=== PATIENT | female | born 1980 | race Caucasian/White ===

== ENCOUNTER → 2016-06-26 | Outpatient (CLI) | payer BC ==
[~2016-06-26] MED LIST: LORA-655
== END | disposition home or self-care (01) ==
LOC: XYW 08:14
PROVIDERS: ATTEND Internal Medicine
DX: Z01.818 Encounter for other preprocedural examination (principal); R00.2 Palpitations; I34.2 Nonrheumatic mitral (valve) stenosis; I35.0 Nonrheumatic aortic (valve) stenosis
CPT/HCPCS: 93306

== ENCOUNTER → 2016-07-17 | Outpatient (CLI) | payer BC | END | disposition home or self-care (01) | LOC: LAB 09:45 | PROVIDERS: ATTEND Obstetrics & Gynecology | DX: N93.8 Other specified abnormal uterine and vaginal bleeding (principal) ==

== ENCOUNTER → 2017-01-22 | Outpatient (CLI) | payer BC | END | disposition home or self-care (01) | LOC: LAB 15:39 | PROVIDERS: ATTEND Obstetrics & Gynecology | DX: N91.2 Amenorrhea, unspecified (principal) | CPT/HCPCS: 36415; 84702 ==

== ENCOUNTER → 2017-03-10 | Outpatient (CLI) | payer BC | END | disposition home or self-care (01) | LOC: LAB 16:49 | PROVIDERS: ATTEND Obstetrics & Gynecology | DX: R97.1 Elevated cancer antigen 125 [CA 125] (principal) | CPT/HCPCS: 86300; 86301; 86304 ==

== ENCOUNTER → 2017-05-21 | Outpatient (CLI) | payer BC ==
[2017-05-21 08:39] LABS: Basophils # (auto) 0 uL; Basophils % (auto) 0.6 % (0.0-2.0); Eosinophils # (auto) 0.1 uL; Eosinophils % (auto) 1.9 % (0.0-7.0); Hematocrit 41.3 % (36.0-46.0); Lymphocytes # (auto) 2.9 uL; Lymphocytes % (auto) 36.9 % (10.0-50.0); Mean Corpuscular Hemoglobin 29.2 pg (28.0-32.0); Mean Corpuscular Hgb Conc. 33.8 g/dL (32.0-36.0); Mean Corpuscular Volume 86.5 fL (80.0-100.0); Mean Platelet Volume 7.8 fL (6.9-10.8); Monocytes # (auto) 0.6 uL; Monocytes % (auto) 7.6 % (0.0-12.0); Neutrophils # (auto) 4.1 uL; Nucleated Red Blood Cells % 0.1 %; Platelet Count (auto) 315 10^3/uL (140-450); Red Cell Distribution Width 12.7 % (11.8-14.3); White Blood Cell 7.7 10^3/uL (4.4-10.8)
[2017-05-21 09:24] LABS: Albumin 4.1 g/dL (3.4-5.0); BUN/Creatinine Ratio 15.9; Bilirubin, Total 0.3 mg/dL (0.2-1.0); Calcium 8.9 mg/dL (8.5-10.1); Potassium 4.2 mmol/L (3.5-5.1)
[2017-05-21 10:13] LABS: Urine Bilirubin Negative (Negative); Urine Blood Negative /uL (Negative); Urine Color Yellow (Yellow); Urine Glucose Normal (Normal); Urine Ketone Negative (Negative); Urine Nitrite Negative (Negative); Urine RBC 2 /hpf (0 - 4); Urine Squamous Epithelial Cell FEW /hpf (<5); Urine Urobilinogen Normal (Negative)
== END | disposition home or self-care (01) ==
LOC: LAB 08:17
PROVIDERS: ATTEND Internal Medicine
DX: D36.7 Benign neoplasm of other specified sites (principal); I10 Essential (primary) hypertension; E11.9 Type 2 diabetes mellitus without complications
CPT/HCPCS: 36415; 80053; 80061; 81001; 82088; 82306; 82384; 84439; 84443; 85025; 85652

== ENCOUNTER → 2018-03-08 | Outpatient (CLI) | payer BC | END | disposition home or self-care (01) | LOC: LAB 15:34 | PROVIDERS: ATTEND Obstetrics & Gynecology | DX: R97.8 Other abnormal tumor markers (principal); I10 Essential (primary) hypertension; E11.9 Type 2 diabetes mellitus without complications | CPT/HCPCS: 86300 ==

== ENCOUNTER → 2018-03-26 | Outpatient (CLI) | payer BC ==
[2018-03-26 07:33] LABS: Basophils # (auto) 0.1 uL; Basophils % (auto) 1.2 % (0.0-2.0); Eosinophils # (auto) 0.2 uL; Eosinophils % (auto) 1.8 % (0.0-7.0); Hematocrit 42.4 % (36.0-46.0); Hemoglobin 14.1 g/dL (12.2-16.2); Lymphocytes # (auto) 3.1 uL; Lymphocytes % (auto) 37.3 % (10.0-50.0); Mean Corpuscular Hemoglobin 28.8 pg (28.0-32.0); Mean Corpuscular Hgb Conc. 33.3 g/dL (32.0-36.0); Mean Corpuscular Volume 86.6 fL (80.0-100.0); Monocytes # (auto) 0.6 uL; Monocytes % (auto) 6.6 % (0.0-12.0); Neutrophils # (auto) 4.5 uL; Neutrophils % (auto) 53.1 % (37.0-80.0); Nucleated Red Blood Cells % 0.1 %; Platelet Count (auto) 314 10^3/uL (140-450); Red Blood Cells 4.89 10^6/uL (4.0-5.20); White Blood Cell 8.4 10^3/uL (4.4-10.8)
[2018-03-26 08:02] LABS: Urine Bacteria FEW /hpf (None Seen); Urine Blood Negative /uL (Negative); Urine Specific Gravity 1.022 (1.001-1.035); Urine WBC <1 /hpf (0 - 5)
[2018-03-26 08:56] LABS: Albumin 4.1 g/dL (3.4-5.0); Potassium 4.2 mmol/L (3.5-5.1)
[2018-03-26 09:02] LABS: BUN/Creatinine Ratio 17.4; Bilirubin, Total 0.5 mg/dL (0.2-1.0); Total Protein 8.5 g/dL (6.4-8.2)
== END | disposition home or self-care (01) ==
LOC: LAB 07:13
PROVIDERS: ATTEND Internal Medicine
DX: Z00.01 Encounter for general adult medical examination with abnormal findings (principal); F41.1 Generalized anxiety disorder
CPT/HCPCS: 36415; 80053; 80061; 81001; 82306; 84439; 84443; 85025; 85652

== ENCOUNTER 2018-06-26 17:35 | Emergency (ER) | payer BC ==
[~2018-06-26] VITALS: Ht 160 cm; Wt 72.6 kg
[2018-06-26 18:15] LABS: Basophils # (auto) 0.1 uL; Basophils % (auto) 0.8 % (0.0-2.0); Eosinophils # (auto) 0.2 uL; Eosinophils % (auto) 1.6 % (0.0-7.0); Hematocrit 39.5 % (36.0-46.0); Hemoglobin 13.5 g/dL (12.2-16.2); Lymphocytes # (auto) 4.2 uL; Lymphocytes % (auto) 40.2 % (10.0-50.0); Mean Corpuscular Hemoglobin 29.6 pg (28.0-32.0); Mean Corpuscular Hgb Conc. 34.2 g/dL (32.0-36.0); Mean Corpuscular Volume 86.4 fL (80.0-100.0); Monocytes # (auto) 0.7 uL; Monocytes % (auto) 6.9 % (0.0-12.0); Neutrophils # (auto) 5.3 uL; Neutrophils % (auto) 50.5 % (37.0-80.0); Nucleated Red Blood Cells % 0.1 %; Platelet Count (auto) 323 10^3/uL (140-450); Red Blood Cells 4.57 10^6/uL (4.0-5.20); Red Cell Distribution Width 13.1 % (11.8-14.3); White Blood Cell 10.5 10^3/uL (4.4-10.8)
[2018-06-26 18:31] LABS: Albumin 4.1 g/dL (3.4-5.0); Anion Gap 7 (5-15); Blood Urea Nitrogen 16 mg/dL (7-18); Calcium 8.4 mg/dL (8.5-10.1); Carbon Dioxide 25 mmol/L (21-32); Chloride 107 mmol/L (98-107); Glucose 92 mg/dL (74-106); Potassium 3.2 mmol/L (3.5-5.1); Sodium 139 mmol/L (136-145)
[2018-06-26 18:34] LABS: Alanine Aminotransferase 23 U/L (13-56); Alkaline Phosphatase 69 U/L (45-117); Aspartate Aminotransferase 18 U/L (15-37); BUN/Creatinine Ratio 16.8; Bilirubin, Total 0.2 mg/dL (0.2-1.0); GFR African American > 60 mL/min; GFR Non-African American > 60 mL/min; Total Protein 7.9 g/dL (6.4-8.2)
[2018-06-26] MEDS ORDERED: MORPHINE SULFATE 10 MG/ML INJ 1ML SDV IV ONE (19:30)
[2018-06-26] MEDS ORDERED: ONDANSETRON HCL 4 MG/2 ML VIAL IV ONE (19:30)
[2018-06-26] MEDS ORDERED: KETOROLAC TROMETH 30 MG/ML 1ML VIAL IV ONE (20:45)
[2018-06-26 21:17] VITALS: BP 120/73
== END 2018-06-26 21:28 | disposition home or self-care (01) ==
LOC: ER 17:37
DX: G43.909 Migraine, unspecified, not intractable, without status migrainosus (principal); E11.9 Type 2 diabetes mellitus without complications; I10 Essential (primary) hypertension
CPT/HCPCS: 36415; 70450; 80053; 85025; 96374; 96375; 99284; J1885; J2270; J2405

== ENCOUNTER 2019-02-23 16:24 | Inpatient (IN) | payer BC ==
[~2019-02-23] VITALS: Ht 160 cm; Wt 78.0 kg
[2019-02-23] MEDS ORDERED: SODIUM CHLORIDE 0.9% 1,000 ML IV ONE ×2 (17:03→19:00)
[2019-02-23 17:27] LABS: Urine Amorphous Crystal FEW /hpf (None Seen); Urine Bacteria MANY /hpf (None Seen); Urine Blood 3+ /uL (Negative); Urine Specific Gravity 1.004 (1.001-1.035); Urine WBC 6 /hpf (0 - 5)
[2019-02-23 17:29] LABS: Albumin 4.2 g/dL (3.4-5.0); BUN/Creatinine Ratio 11.9; Calcium 8.7 mg/dL (8.5-10.1); Magnesium 2.6 mg/dL (1.6-2.6); Potassium 4.2 mmol/L (3.5-5.1)
[2019-02-23 17:37] LABS: Basophils # (auto) 0.1 uL; Eosinophils # (auto) 0.1 uL; Eosinophils % (auto) 0.8 % (0.0-7.0); Hematocrit 43.1 % (36.0-46.0); Hemoglobin 14.6 g/dL (12.2-16.2); Lymphocytes # (auto) 3.4 uL; Lymphocytes % (auto) 24.7 % (10.0-50.0); Mean Corpuscular Hemoglobin 29.3 pg (28.0-32.0); Mean Corpuscular Hgb Conc. 33.9 g/dL (32.0-36.0); Mean Corpuscular Volume 86.5 fL (80.0-100.0); Monocytes # (auto) 1.1 uL; Monocytes % (auto) 7.8 % (0.0-12.0); Neutrophils % (auto) 65.7 % (37.0-80.0); Nucleated Red Blood Cells % 0.1 %; Platelet Count (auto) 234 10^3/uL (140-450); Red Blood Cells 4.98 10^6/uL (4.0-5.20); Red Cell Distribution Width 13.5 % (11.8-14.3); White Blood Cell 13.7 10^3/uL (4.4-10.8)
[2019-02-23 17:38] LABS: Bilirubin, Total 0.4 mg/dL (0.2-1.0); Total Protein 8.3 g/dL (6.4-8.2)
[2019-02-23] MEDS ORDERED: NALBUPHINE HCL 10 MG/1ml INJECTION IV ONE (17:45)
[2019-02-23] MEDS ORDERED: PROMETHAZINE HCL 25 MG/ML 1ML IV ONE (17:45)
[2019-02-23] MEDS ORDERED: cefTRIAXone 1GM/50ML D5W 50 ML IV ONE (18:15)
[2019-02-23 21:00] VITALS: BP 138/95
--- NOTE | 2019-02-23 21:00 | NUR ---
MS admit from ER DANIELLE PARMAR admitted to tele/MS. Patient oriented to DAMIAN DUKE, RN primary RN, unit, room, bed, and unit policies regarding patient care and visiting hours. Patient weighed by bedscale and all questions and concerns addressed, patient verbalized understanding. Note: Patient brought to room via wheelchair. Able to transfer indepedently. 20 gauge IV to right AC intact and patent. Flushed with 10ml NS. Patient is currently on RA with no SOB or distress noted. Reports 7/10 pain in BLE. Pain management options discussed with patient. Bedside commode provided d/t pain/weakness of lower extremities. Patient encouraged to call for assistance when needed. POC discussed with patient who verbalizes understanding. Will continue to monitor for chages PRN.
[2019-02-23] MEDS: MORPHINE SULF INJ 2 MG/ML SYRINGE 1ML IV PRN (21:31)
[2019-02-23 21:52] VITALS: BP 138/95
--- NOTE | 2019-02-23 22:30 | NUR ---
ROUNDS Patient is resting in bed with eyes closed. Reports a decrease in pain following the administration of Morphine but continues to be "pretty sore". Encouraged patient to call for pain medication when needed. Verbalizes understanding. Will continue to monitor for changes PRN.
--- NOTE | 2019-02-24 | NUR ---
ROUNDS Patient resting ion bed with eyes closed. Respirations are even and non-labored. No distress noted.
--- NOTE | 2019-02-24 02:00 | NUR ---
ROUNDS Patient resting in bed on left side with eyes closed. Respirations even and on labored. No distress noted.
[2019-02-24] MEDS: MORPHINE SULF INJ 2 MG/ML SYRINGE 1ML IV PRN ×3 (03:02→20:39)
--- NOTE | 2019-02-24 03:02 | NUR ---
Patient medicated for 7/10 pain in BLE, specifically the lateral portion of bilateral thighs; described as a burning pain.
--- NOTE | 2019-02-24 03:03 | NUR ---
ELIMINATION Bedside commode emptied. Urine output is cloudy and brown in color with normal odor.
[2019-02-24 05:47] VITALS: BP 135/78
[2019-02-24 06:02] LABS: Basophils # (auto) 0.1 uL; Basophils % (auto) 0.5 % (0.0-2.0); Eosinophils # (auto) 0.2 uL; Eosinophils % (auto) 2.2 % (0.0-7.0); Hematocrit 39.3 % (36.0-46.0); Hemoglobin 13.2 g/dL (12.2-16.2); Lymphocytes # (auto) 2.6 uL; Lymphocytes % (auto) 27.5 % (10.0-50.0); Mean Corpuscular Hemoglobin 29.3 pg (28.0-32.0); Mean Corpuscular Hgb Conc. 33.7 g/dL (32.0-36.0); Monocytes % (auto) 10.1 % (0.0-12.0); Neutrophils # (auto) 5.7 uL; Neutrophils % (auto) 59.7 % (37.0-80.0); Nucleated Red Blood Cells % 0.1 %; Platelet Count (auto) 207 10^3/uL (140-450); Red Blood Cells 4.51 10^6/uL (4.0-5.20); Red Cell Distribution Width 13.2 % (11.8-14.3); White Blood Cell 9.5 10^3/uL (4.4-10.8)
[2019-02-24 06:22] LABS: Albumin 3.5 g/dL (3.4-5.0); Calcium 8.4 mg/dL (8.5-10.1); Magnesium 2.5 mg/dL (1.6-2.6); Potassium 4.2 mmol/L (3.5-5.1)
[2019-02-24 06:30] LABS: BUN/Creatinine Ratio 10.3; Bilirubin, Total 0.4 mg/dL (0.2-1.0); Phosphorus 3.3 mg/dL (2.5-4.90); Total Protein 7.1 g/dL (6.4-8.2)
--- NOTE | 2019-02-24 06:40 | NUR ---
Patient reports pain in Bilateral thighs. Muscle is firm and warm. Patient states that morphine is not able to decrease the pain much and declines pain medication a this time. Patient encouraged to call for any other needs.
--- NOTE | 2019-02-24 06:58 | NUR ---
Care endorsed to Day shift nurse. No distress noted at this time.
--- NOTE | 2019-02-24 07:20 | NUR ---
Opening Shift Note Assumed care of patient, awake and alert. No S/S of distress/SOB or pain. Instructed on POC and to call for assist PRN, will continue to monitor for changes Q1hr and PRN.
[2019-02-24 07:30] VITALS: BP 154/93
[2019-02-24 08:40] VITALS: BP 154/93
[2019-02-24] MEDS: cefTRIAXone 1GM/50ML D5W 50 ML IV SCH (09:08)
[2019-02-24] MEDS: FAMOTIDINE 20 MG TAB PO SCH (09:08)
[2019-02-24] MEDS ORDERED: FOLIC ACID 1 MG, MULTIPLE VITAMIN 10 ML, MAGNESIUM SULF SDV 50% 8 MEQ, THIAMINE INJ 100... INJ SCH ×5 (12:00)
[2019-02-24] MEDS: SODIUM BICARBONATE 50ML VIAL 50 ML in SOD CHL 0.45% 1,000 ML IV SCH ×3 (12:12→23:40)
--- NOTE | 2019-02-24 12:58 | NUR ---
Paged doctor Kathi, awaiting call back.
[2019-02-24 13:00] VITALS: BP 158/92
--- NOTE | 2019-02-24 13:44 | NUR ---
Spoke with Doctor Armenta. New orders received, see EMR for orders.
[2019-02-24] MEDS ORDERED: ONDANSETRON HCL 4 MG/2 ML VIAL IV PRN (13:45)
[2019-02-24 16:22] VITALS: BP 156/90
[2019-02-24] MEDS: traMADol HCL 50 MG TAB PO PRN (18:07)
--- NOTE | 2019-02-24 19:25 | NUR ---
Opening Shift Note Assumed care of patient, awake and alert. No S/S of distress/SOB. The patient c/o bilateral leg pain that is exacerbated with movement. Instructed on POC and to call for assist PRN, will continue to monitor for changes Q1hr and PRN.
[2019-02-24 21:00] VITALS: BP 158/89
[2019-02-25] MEDS: SODIUM BICARBONATE 50ML VIAL 50 ML in SOD CHL 0.45% 1,000 ML IV SCH ×5 (03:14→20:08)
--- NOTE | 2019-02-25 04:00 | NUR ---
PAIN ASSESSMENT The patient states that she is having a 7/10 headache which she describes as throbbing. The patient requested pain medication. Will treat with PRN pain medication.
[2019-02-25] MEDS: traMADol HCL 50 MG TAB PO PRN ×2 (04:05→09:57)
[2019-02-25 04:50] VITALS: BP 140/90
[2019-02-25 05:48] LABS: Calcium 8.1 mg/dL (8.5-10.1); Potassium 3.5 mmol/L (3.5-5.1)
[2019-02-25 05:51] LABS: Albumin 3.4 g/dL (3.4-5.0); BUN/Creatinine Ratio 8.9
[2019-02-25 06:07] LABS: Bilirubin, Total 0.4 mg/dL (0.2-1.0); Total Protein 6.8 g/dL (6.4-8.2)
--- NOTE | 2019-02-25 07:25 | NUR ---
Opening Shift Note Assumed care of patient, awake and alert x4. No S/S of distress/SOB, c/o of headache pain 10/15, will medicate with pain meds per MD order. Respirations are even and unlabored on RA. Updated on POC and instructed to call for assistance as needed, patient verbalized understanding. Bed locked in lowest position, side rails up x2, call light within reach. Will continue to monitor for changes Q1hr and PRN.
[2019-02-25 09:00] VITALS: BP 141/92
--- NOTE | 2019-02-25 09:06 | NUR ---
Patient c/o of a headache, requesting Motrin or Tylenol. Paged finance and administration manager hospitalist for orders.
[2019-02-25] MEDS: FAMOTIDINE 20 MG TAB PO SCH (09:27)
[2019-02-25] MEDS: cefTRIAXone 1GM/50ML D5W 50 ML IV SCH (09:27)
[2019-02-25] MEDS ORDERED: SODIUM BICARBONATE 50ML VIAL 50 ML in SOD CHL 0.45% 1,000 ML IV ONE ×2 (10:00→10:30)
[2019-02-25] MEDS ORDERED: KETOROLAC TROMETH 30 MG/ML 1ML VIAL IV ONE (10:00)
[2019-02-25 13:00] VITALS: BP 147/89
[2019-02-25 17:00] VITALS: BP 133/81
--- NOTE | 2019-02-25 18:45 | NUR ---
Care endorsed to Day shift nurse. No distress noted at this time.
--- NOTE | 2019-02-25 19:25 | NUR ---
Opening Shift Note Assumed care of patient, awake and alert. No S/S of distress/SOB. The patient c/o mild bilateral leg pain but does not request any pain medication. Patient has been educated about signs/symptoms to report immediately. Instructed on POC and to call for assist PRN, will continue to monitor for changes Q1hr and PRN.
[2019-02-25 21:45] VITALS: BP 150/91
[2019-02-26] MEDS: SODIUM BICARBONATE 50ML VIAL 50 ML in SOD CHL 0.45% 1,000 ML IV SCH ×6 (02:08→20:04)
[2019-02-26 05:14] VITALS: BP 136/91
[2019-02-26 06:28] LABS: Chloride 105 mmol/L (98-107); Potassium 3.7 mmol/L (3.5-5.1); Sodium 138 mmol/L (136-145)
[2019-02-26 06:29] LABS: Alkaline Phosphatase 57 U/L (45-117); Anion Gap 6 (5-15); Aspartate Aminotransferase 1893 U/L (15-37); BUN/Creatinine Ratio 12.2; Blood Urea Nitrogen 10 mg/dL (7-18); Carbon Dioxide 27 mmol/L (21-32); GFR African American 99 mL/min; GFR Non-African American 82 mL/min; Glucose 89 mg/dL (74-106)
[2019-02-26 06:30] LABS: Alanine Aminotransferase 762 U/L (13-56); Albumin 3.1 g/dL (3.4-5.0); Bilirubin, Total < 0.1 mg/dL (0.2-1.0); Calcium 8.4 mg/dL (8.5-10.1); Total Protein 6.6 g/dL (6.4-8.2)
--- NOTE | 2019-02-26 07:25 | NUR ---
CLOSING SHIFT NOTE Care has been endorsed to day shift RN.
--- NOTE | 2019-02-26 08:00 | NUR ---
PT REPORTS 7/10 PAIN IN ABDOMEN. PRN PAIN MEDICATION GIVEN. PT PULLED OUT IV, ATTEMPTED NEW IV USING STERILE TECHNIQUE ON LAC UNSUCCESSFUL. ASKED CHARGE FOR IV INSERTION. NEW IV PLACED BY YINA DUNHAM 22 G. Addendum: 02/26/19 at 1044 by NITIN ZEPEDA RN WRONG PATIENT
[2019-02-26 09:00] VITALS: BP 137/77
[2019-02-26] MEDS: cefTRIAXone 1GM/50ML D5W 50 ML IV SCH (09:47)
[2019-02-26] MEDS: FAMOTIDINE 20 MG TAB PO SCH (09:48)
--- NOTE | 2019-02-26 10:45 | NUR ---
DR HATCH SAW PATIENT. REPORTS TO CONTINUE FLUIDS, GI CONSULT AND GALL BLADDER US. [facility] CALLED. THEY REQUEST PT BE NPO UNTIL 1700, PT AWARE.
--- NOTE | 2019-02-26 10:53 | NUR ---
PER DR. THOMAS, NO CONSULT NEEDED TO BE CALLED FOR 209. PLACED BY AT 1036. DR THOMAS SAW PAT.
[2019-02-26 13:00] VITALS: BP 139/88
[2019-02-26 16:55] VITALS: BP 142/78
[2019-02-26 22:00] VITALS: BP 133/81
[2019-02-27] MEDS: SODIUM BICARBONATE 50ML VIAL 50 ML in SOD CHL 0.45% 1,000 ML IV SCH ×6 (00:17→21:00)
[2019-02-27 05:08] LABS: Basophils # (auto) 0.1 uL; Eosinophils # (auto) 0.3 uL; Eosinophils % (auto) 3.5 % (0.0-7.0); Hematocrit 36.6 % (36.0-46.0); Hemoglobin 12.4 g/dL (12.2-16.2); Lymphocytes # (auto) 2.4 uL; Lymphocytes % (auto) 26.4 % (10.0-50.0); Mean Corpuscular Hemoglobin 29.3 pg (28.0-32.0); Mean Corpuscular Hgb Conc. 33.9 g/dL (32.0-36.0); Mean Corpuscular Volume 86.5 fL (80.0-100.0); Monocytes # (auto) 0.5 uL; Monocytes % (auto) 5.9 % (0.0-12.0); Neutrophils # (auto) 5.7 uL; Neutrophils % (auto) 63.2 % (37.0-80.0); Platelet Count (auto) 262 10^3/uL (140-450); Red Blood Cells 4.23 10^6/uL (4.0-5.20)
[2019-02-27 05:18] LABS: Potassium 3.7 mmol/L (3.5-5.1)
[2019-02-27 05:22] LABS: Albumin 3.1 g/dL (3.4-5.0); Calcium 8.3 mg/dL (8.5-10.1)
[2019-02-27 05:31] LABS: Bilirubin, Total 0.4 mg/dL (0.2-1.0); Total Protein 6.4 g/dL (6.4-8.2)
[2019-02-27 05:47] VITALS: BP 127/79
[2019-02-27 06:50] LABS: BUN/Creatinine Ratio 14.1
--- NOTE | 2019-02-27 07:49 | NUR ---
PT REPORTS SHE WANTS TO GO HOME SOON. PT UPSET AND CRYING. LICENSED ARCHITECT TAKING VITALS, HR 155. PT REPORTS NO SOB OR CHEST PAIN, SHE REPORTS SHE IS ,"JUST FRUSTRATED." STAT ECG DONE. ECG SHOW SINUS TACHYCARDIA 105 BPM. BP 129/105. DR HATCH NOTIFIED. NO NEW ORDERS.
--- NOTE | 2019-02-27 08:45 | NUR ---
DR HATCH SAW PATIENT AND DISCUSSED POC. DR HATCH NOTIFIED PATIENT ON HER HEALTH STATUS. REPORTS POSSIBLE DC TOMORROW.
[2019-02-27 08:46] VITALS: BP 129/105
[2019-02-27 09:00] VITALS: BP 129/105
[2019-02-27] MEDS: FAMOTIDINE 20 MG TAB PO SCH (10:01)
--- NOTE | 2019-02-27 12:15 | NUR ---
Nutrition Assessment Notes please see attached link for complete assessment Est. Needs BW [id number] kcal (23-25 kcal/kgBW), 73-80 gms pro (1.0-1.1 gms/kgBW). Will continue to monitor pertinent labs and reassess nutrient need prn Addendum: 02/27/19 at [address] Amended: Links added.
[2019-02-27 12:30] VITALS: BP 135/90
[2019-02-27 16:55] VITALS: BP 132/66
[2019-02-27 22:20] VITALS: BP 139/84
[2019-02-28] MEDS: SODIUM BICARBONATE 50ML VIAL 50 ML in SOD CHL 0.45% 1,000 ML IV SCH ×5 (02:14→20:29)
[2019-02-28 05:02] LABS: Basophils # (auto) 0 uL; Basophils % (auto) 0.2 % (0.0-2.0); Eosinophils # (auto) 0.3 uL; Eosinophils % (auto) 3.9 % (0.0-7.0); Hematocrit 36.8 % (36.0-46.0); Hemoglobin 12.6 g/dL (12.2-16.2); Lymphocytes # (auto) 2.3 uL; Lymphocytes % (auto) 27.4 % (10.0-50.0); Mean Corpuscular Hemoglobin 29.9 pg (28.0-32.0); Mean Corpuscular Hgb Conc. 34.3 g/dL (32.0-36.0); Mean Corpuscular Volume 87.1 fL (80.0-100.0); Monocytes # (auto) 0.5 uL; Neutrophils # (auto) 5.3 uL; Neutrophils % (auto) 62.5 % (37.0-80.0); Nucleated Red Blood Cells % 0.1 %; Platelet Count (auto) 270 10^3/uL (140-450); Red Blood Cells 4.22 10^6/uL (4.0-5.20); White Blood Cell 8.5 10^3/uL (4.4-10.8)
[2019-02-28 05:27] LABS: Calcium 8.5 mg/dL (8.5-10.1); Potassium 3.6 mmol/L (3.5-5.1)
[2019-02-28 05:55] LABS: BUN/Creatinine Ratio 11.3; Bilirubin, Total 0.3 mg/dL (0.2-1.0); Total Protein 6.4 g/dL (6.4-8.2)
[2019-02-28 06:00] VITALS: BP 134/75
[2019-02-28 09:00] VITALS: BP 148/78
[2019-02-28] MEDS: FAMOTIDINE 20 MG TAB PO SCH (09:59)
[2019-02-28 13:00] VITALS: BP 132/69
[2019-02-28 16:55] VITALS: BP 135/86
--- NOTE | 2019-02-28 19:00 | NUR ---
Opening Shift Note Assumed care of patient, awake and alert. Family on bedside. No S/S of distress/SOB or pain. Instructed on POC and to call for assist PRN, will continue to monitor for changes Q1hr and PRN.
[2019-02-28 21:00] VITALS: BP 145/82
[2019-03-01] MEDS: SODIUM BICARBONATE 50ML VIAL 50 ML in SOD CHL 0.45% 1,000 ML IV SCH ×3 (01:43→06:42)
[2019-03-01 04:30] VITALS: BP 122/71
[2019-03-01 06:09] LABS: Albumin 2.9 g/dL (3.4-5.0); BUN/Creatinine Ratio 12.5; Calcium 8.3 mg/dL (8.5-10.1); Potassium 3.5 mmol/L (3.5-5.1)
[2019-03-01 06:37] LABS: Bilirubin, Total 0.2 mg/dL (0.2-1.0); Total Protein 6.2 g/dL (6.4-8.2)
[2019-03-01 09:16] VITALS: BP 126/84
[2019-03-01] MEDS: FAMOTIDINE 20 MG TAB PO SCH (09:29)
--- NOTE | 2019-03-01 11:37 | NUR ---
DISCHARGE INSTRUCTIONS PROVIDED, VERBALIZED UNDERSTANDING. IV ACCESS REMOVED, TOLERATED WELL. WAITING FOR CO WORKER TO TAKE HER HOME.
--- NOTE | 2019-03-01 12:45 | NUR ---
discharge from hospital with all belonging accounted for. jay Thornton took patient off unit.
== END 2019-03-01 12:45 | disposition home or self-care (01) | DRG 558 ==
LOC: ER 16:31 → OVERFLOW 16:32 → CENTRAL 21:06
PROVIDERS: ADMIT Nurse Practitioner Acute Care; ATTEND Internal Medicine
DX: M62.82 Rhabdomyolysis (principal); N39.0 Urinary tract infection, site not specified; R65.10 Systemic inflammatory response syndrome (SIRS) of non-infectious origin without acute organ dysfunction; M60.862 Other myositis, left lower leg; M60.861 Other myositis, right lower leg; I10 Essential (primary) hypertension; D72.829 Elevated white blood cell count, unspecified; R79.89 Other specified abnormal findings of blood chemistry
CPT/HCPCS: 36415; 71046; 76705; 80053; 81001; 82550; 83735; 84100; 84702; 85025; 93005; G0378; J0696; J1885; J2405

== ENCOUNTER → 2019-03-03 | Outpatient (CLI) | payer BC ==
[2019-03-03 09:04] LABS: Albumin 3.6 g/dL (3.4-5.0); Calcium 8.8 mg/dL (8.5-10.1); Potassium 3.3 mmol/L (3.5-5.1)
[2019-03-03 09:18] LABS: BUN/Creatinine Ratio 21.2; Bilirubin, Total 0.2 mg/dL (0.2-1.0); Total Protein 7.3 g/dL (6.4-8.2)
== END | disposition home or self-care (01) ==
LOC: LAB 07:56
PROVIDERS: ATTEND Pathology Anatomic Pathology & Clinical Pathology
DX: M62.82 Rhabdomyolysis (principal)
CPT/HCPCS: 36415; 80053; 82550

== ENCOUNTER → 2019-03-09 | Outpatient (CLI) | payer BC ==
[2019-03-09 12:25] LABS: Albumin 3.8 g/dL (3.4-5.0); Calcium 9.2 mg/dL (8.5-10.1); Potassium 4.3 mmol/L (3.5-5.1)
[2019-03-09 12:30] LABS: BUN/Creatinine Ratio 16.7; Bilirubin, Total 0.3 mg/dL (0.2-1.0); Total Protein 7.7 g/dL (6.4-8.2)
== END | disposition home or self-care (01) ==
LOC: LAB 10:49
PROVIDERS: ATTEND Internal Medicine
DX: M62.82 Rhabdomyolysis (principal)
CPT/HCPCS: 36415; 80053; 82550

== ENCOUNTER → 2019-04-04 | Outpatient (CLI) | payer BC ==
[2019-04-04 09:40] LABS: Cholesterol 192 mg/dL (< 200); Creatine Kinase IFCC 262 U/L (26-192); HDL Cholesterol 43 mg/dL (40-59); LDL Cholesterol 132 mg/dL (< 100); Triglycerides 215 mg/dL (< 150)
== END | disposition home or self-care (01) ==
LOC: LAB 07:12
PROVIDERS: ATTEND Internal Medicine
DX: E78.1 Pure hyperglyceridemia (principal)
CPT/HCPCS: 36415; 80061; 82550; 84443

== ENCOUNTER → 2019-07-29 | Emergency (ER) | payer BC ==
[~2019-07-29] VITALS: Ht 160 cm; Wt 72.6 kg
[~2019-07-29] MED LIST changes: -LORA-655; +MORPHINE SULF INJ 2 MG/ML SYRINGE 1ML IV ONE; +ONDANSETRON HCL 4 MG/2 ML VIAL IV ONE; +POTASSIUM CHL 20 Meq TABLET PO ONE; +POTASSIUM CHL 20MEQ/100ML 100 ML IV ONE; +cloNIDine HCL 0.1 MG TAB PO ONE
[2019-07-29 12:53] LABS: Urine Bacteria NONE SEEN /hpf (None Seen); Urine Blood Negative /uL (Negative); Urine Specific Gravity 1.004 (1.001-1.035); Urine WBC 1 /hpf (0 - 5)
[2019-07-29 13:35] LABS: Albumin 4.4 g/dL (3.4-5.0); Calcium 9.4 mg/dL (8.5-10.1); Magnesium 2.6 mg/dL (1.6-2.6)
[2019-07-29 13:38] LABS: BUN/Creatinine Ratio 13.4; Bilirubin, Total 0.4 mg/dL (0.2-1.0)
[2019-07-29 14:00] LABS: Basophils # (auto) 0.1 uL; Basophils % (auto) 0.5 % (0.0-2.0); Eosinophils # (auto) 0 uL; Eosinophils % (auto) 0.4 % (0.0-7.0); Hematocrit 41.4 % (36.0-46.0); Hemoglobin 13.9 g/dL (12.2-16.2); Lymphocytes # (auto) 2.4 uL; Lymphocytes % (auto) 19.7 % (10.0-50.0); Mean Corpuscular Hemoglobin 28.6 pg (28.0-32.0); Mean Corpuscular Hgb Conc. 33.5 g/dL (32.0-36.0); Mean Corpuscular Volume 85.5 fL (80.0-100.0); Monocytes # (auto) 0.7 uL; Monocytes % (auto) 5.9 % (0.0-12.0); Neutrophils # (auto) 9.1 uL; Neutrophils % (auto) 73.5 % (37.0-80.0); Platelet Count (auto) 353 10^3/uL (140-450); Red Blood Cells 4.84 10^6/uL (4.0-5.20); Red Cell Distribution Width 13.1 % (11.8-14.3); White Blood Cell 12.3 10^3/uL (4.4-10.8)
[2019-07-29 15:23] VITALS: BP 141/95
== END | disposition home or self-care (01) ==
LOC: ER 11:58
DX: G43.909 Migraine, unspecified, not intractable, without status migrainosus (principal); R11.2 Nausea with vomiting, unspecified; E11.9 Type 2 diabetes mellitus without complications; I10 Essential (primary) hypertension
CPT/HCPCS: 36415; 70450; 80053; 81001; 83735; 84702; 85025; 93005; 96374; 96375; 99285; J2270; J2405

== ENCOUNTER → 2019-09-23 | Outpatient (CLI) | payer BC ==
[2019-09-23 12:22] LABS: Calcium 9.1 mg/dL (8.5-10.1); Potassium 3.6 mmol/L (3.5-5.1)
[2019-09-23 12:27] LABS: BUN/Creatinine Ratio 14.1
== END | disposition home or self-care (01) ==
LOC: LAB 11:26
PROVIDERS: ATTEND Internal Medicine
DX: I10 Essential (primary) hypertension (principal); E55.9 Vitamin D deficiency, unspecified; M62.82 Rhabdomyolysis
CPT/HCPCS: 36415; 80048; 82306; 82550

== ENCOUNTER → 2020-03-21 | Outpatient (CLI) | payer BC ==
[2020-03-21 15:12] LABS: Basophils # (auto) 0.1 10 ^3/uL (0-0.2); Basophils % (auto) 0.8 % (0.0-2.0); Eosinophils # (auto) 0.1 10 ^3/uL (0-0.8); Eosinophils % (auto) 1.6 % (0.0-7.0); Hematocrit 38.4 % (36.0-46.0); Hemoglobin 12.9 g/dL (12.2-16.2); Lymphocytes # (auto) 2.6 10 ^3/uL (0.4-5.4); Lymphocytes % (auto) 37.2 % (10.0-50.0); Mean Corpuscular Hgb Conc. 33.5 g/dL (32.0-36.0); Mean Corpuscular Volume 86.4 fL (80.0-100.0); Monocytes # (auto) 0.5 10 ^3/uL (0-1.3); Monocytes % (auto) 6.4 % (0.0-12.0); Neutrophils # (auto) 3.8 10 ^3/uL (1.6-8.6); Platelet Count (auto) 258 10^3/uL (140-450); Red Blood Cells 4.44 10^6/uL (4.0-5.20); Red Cell Distribution Width 13.3 % (11.8-14.3); White Blood Cell 7.1 10^3/uL (4.4-10.8)
[2020-03-21 15:36] LABS: Follicle Stimulating Hormone 5.19 IU/L (SEE BELOW)
== END | disposition home or self-care (01) ==
LOC: LAB 13:56
PROVIDERS: ATTEND Obstetrics & Gynecology
DX: N93.9 Abnormal uterine and vaginal bleeding, unspecified (principal)
CPT/HCPCS: 36415; 82670; 83001; 83002; 84403; 84443; 85025

== ENCOUNTER → 2021-02-15 | Outpatient (CLI) | payer BC | END | disposition home or self-care (01) | LOC: LAB 15:15 | PROVIDERS: ATTEND Obstetrics & Gynecology | DX: N85.8 Other specified noninflammatory disorders of uterus (principal) ==

== ENCOUNTER → 2022-03-10 | Outpatient (CLI) | payer BC ==
[2022-03-10 07:09] LABS: Basophils # (auto) 0 10 ^3/uL (0-0.2); Basophils % (auto) 0.5 % (0.0-2.0); Eosinophils # (auto) 0.1 10 ^3/uL (0-0.8); Hematocrit 39.4 % (36.0-46.0); Hemoglobin 13.3 g/dL (12.2-16.2); Lymphocytes # (auto) 2.3 10 ^3/uL (0.4-5.4); Lymphocytes % (auto) 34.8 % (10.0-50.0); Mean Corpuscular Hemoglobin 29.1 pg (28.0-32.0); Mean Corpuscular Hgb Conc. 33.8 g/dL (32.0-36.0); Monocytes # (auto) 0.5 10 ^3/uL (0-1.3); Neutrophils # (auto) 3.7 10 ^3/uL (1.6-8.6); Neutrophils % (auto) 54.7 % (37.0-80.0); Nucleated Red Blood Cells % 0.1 %; Red Blood Cells 4.59 10^6/uL (4.0-5.20); Red Cell Distribution Width 12.7 % (11.8-14.3); White Blood Cell 6.7 10^3/uL (4.4-10.8)
[2022-03-10 07:13] LABS: Urine Bacteria FEW /hpf (None Seen); Urine Blood Negative /uL (Negative); Urine Specific Gravity 1.015 (1.001-1.035); Urine WBC 1 /hpf (0 - 5)
[2022-03-10 07:37] LABS: Albumin 3.9 g/dL (3.4-5.0); Potassium 4.2 mmol/L (3.5-5.1)
[2022-03-10 07:43] LABS: BUN/Creatinine Ratio 17.8; Bilirubin, Total 0.4 mg/dL (0.2-1.0); Total Protein 7.4 g/dL (6.4-8.2)
== END | disposition home or self-care (01) ==
LOC: LAB 06:37
PROVIDERS: ATTEND Internal Medicine
DX: I10 Essential (primary) hypertension (principal); E55.9 Vitamin D deficiency, unspecified
CPT/HCPCS: 36415; 80053; 80061; 81001; 82306; 84439; 84443; 85025; 85652

== ENCOUNTER → 2023-02-25 | Outpatient (CLI) | payer BC ==
[~2023-02-25] MED LIST changes: +AZIT1POW PO; +METH4PAK PO; -MORPHINE SULF INJ 2 MG/ML SYRINGE 1ML IV ONE; -ONDANSETRON HCL 4 MG/2 ML VIAL IV ONE; -POTASSIUM CHL 20 Meq TABLET PO ONE; -POTASSIUM CHL 20MEQ/100ML 100 ML IV ONE; -cloNIDine HCL 0.1 MG TAB PO ONE
[2023-02-25 08:07] LABS: Urine Bacteria NONE SEEN /hpf (None Seen); Urine Blood Negative /uL (Negative); Urine Clarity Clear (Clear); Urine Color Yellow (Yellow); Urine Mucus FEW (None Seen); Urine Protein, UAD TRACE (Negative); Urine Specific Gravity 1.026 (1.001-1.035); Urine Urobilinogen Normal (Negative); Urine WBC <1 /hpf (0 - 5); Urine pH 6.5 (5.0-8.0)
[2023-02-25 08:08] LABS: Basophils # (auto) 0.1 10 ^3/uL (0-0.2); Basophils % (auto) 1.2 % (0.0-2.0); Eosinophils # (auto) 0.2 10 ^3/uL (0-0.8); Eosinophils % (auto) 2.4 % (0.0-7.0); Hematocrit 39.1 % (36.0-46.0); Hemoglobin 13.5 g/dL (12.2-16.2); Lymphocytes # (auto) 2.4 10 ^3/uL (0.4-5.4); Lymphocytes % (auto) 35.8 % (10.0-50.0); Mean Corpuscular Hemoglobin 29.8 pg (28.0-32.0); Mean Corpuscular Hgb Conc. 34.4 g/dL (32.0-36.0); Mean Corpuscular Volume 86.6 fL (80.0-100.0); Monocytes # (auto) 0.5 10 ^3/uL (0-1.3); Monocytes % (auto) 7.4 % (0.0-12.0); Neutrophils # (auto) 3.6 10 ^3/uL (1.6-8.6); Neutrophils % (auto) 53.2 % (37.0-80.0); Red Blood Cells 4.52 10^6/uL (4.0-5.20); Red Cell Distribution Width 12.9 % (11.8-14.3); White Blood Cell 6.7 10^3/uL (4.4-10.8)
[2023-02-25 08:32] LABS: Alanine Aminotransferase 18 U/L (7-40); Albumin 4.6 g/dL (3.2-4.8); Alkaline Phosphatase 60 U/L (46-116); Aspartate Aminotransferase 17 U/L (13-40); BUN/Creatinine Ratio 12.3 (10.0-20.0); Blood Urea Nitrogen 13 mg/dL (9-23); Calcium 9.3 mg/dL (8.5-10.1); Carbon Dioxide 26 mmol/L (20-30); Cholesterol 187 mg/dL (< 200); Glucose 89 mg/dL (74-106); LDL Cholesterol 112 mg/dL (< 100); Triglycerides 252 mg/dL (< 150)
[2023-02-25 08:33] LABS: Bilirubin, Total 0.5 mg/dL (0.2-1.0); HDL Cholesterol 46 mg/dL (40-59); Total Protein 7.6 g/dL (5.7-8.2)
[2023-02-25 09:04] LABS: Anion Gap 7 (5-15); Chloride 106 mmol/L (98-107); Potassium 4.3 mmol/L (3.5-5.1); Sodium 139 mmol/L (136-145)
[2023-02-25 09:33] LABS: Erythrocyte Sedimentation Rate 13 mm/hr (0-20)
== END | disposition home or self-care (01) ==
LOC: LAB 07:48
PROVIDERS: ATTEND Internal Medicine
DX: I10 Essential (primary) hypertension (principal)
CPT/HCPCS: 36415; 80053; 80061; 81001; 84439; 84443; 85025; 85652

== ENCOUNTER → 2024-03-07 | Outpatient (CLI) | payer BC ==
[2024-03-07 10:03] LABS: Basophils # (auto) 0 10 ^3/uL (0-0.2); Basophils % (auto) 0.5 % (0.0-2.0); Eosinophils # (auto) 0.2 10 ^3/uL (0-0.8); Eosinophils % (auto) 2.1 % (0.0-7.0); Hematocrit 39.7 % (36.0-46.0); Hemoglobin 13.7 g/dL (12.2-16.2); Lymphocytes # (auto) 2.7 10 ^3/uL (0.4-5.4); Lymphocytes % (auto) 36.7 % (10.0-50.0); Mean Corpuscular Hemoglobin 30.2 pg (28.0-32.0); Mean Corpuscular Hgb Conc. 34.5 g/dL (32.0-36.0); Mean Corpuscular Volume 87.5 fL (80.0-100.0); Monocytes # (auto) 0.5 10 ^3/uL (0-1.3); Monocytes % (auto) 7.1 % (0.0-12.0); Neutrophils % (auto) 53.6 % (37.0-80.0); Platelet Count (auto) 295 10^3/uL (140-450); Red Blood Cells 4.54 10^6/uL (4.0-5.20); Red Cell Distribution Width 13.3 % (11.8-14.3); White Blood Cell 7.5 10^3/uL (4.4-10.8)
[2024-03-07 10:06] LABS: Urine Bacteria FEW /hpf (None Seen); Urine Blood Negative /uL (Negative); Urine Clarity Clear (Clear); Urine Color Light-Yellow (Yellow); Urine Protein, UAD Negative (Negative); Urine Specific Gravity 1.009 (1.001-1.035); Urine Urobilinogen Normal (Negative); Urine WBC <1 /hpf (0 - 5)
[2024-03-07 10:19] LABS: Erythrocyte Sedimentation Rate 12 mm/hr (0-20)
[2024-03-07 10:27] LABS: Alanine Aminotransferase 17 U/L (7-40); Albumin 4.6 g/dL (3.2-4.8); Alkaline Phosphatase 69 U/L (46-116); Anion Gap 7 (5-15); Aspartate Aminotransferase 15 U/L (13-40); BUN/Creatinine Ratio 14.3 (10.0-20.0); Blood Urea Nitrogen 12 mg/dL (9-23); Calcium 9.8 mg/dL (8.7-10.4); Carbon Dioxide 26 mmol/L (20-31); Chloride 105 mmol/L (98-107); Glucose 77 mg/dL (74-106); LDL Cholesterol 124 mg/dL (< 100); Potassium 4.2 mmol/L (3.5-5.1); Sodium 138 mmol/L (136-145); Triglycerides 192 mg/dL (< 150)
[2024-03-07 10:28] LABS: Bilirubin, Total 0.3 mg/dL (0.2-1.0); Cholesterol 188 mg/dL (< 200); HDL Cholesterol 48 mg/dL (40-59); Total Protein 7.4 g/dL (5.7-8.2)
[2024-03-07 11:36] LABS: Uric Acid 4.4 mg/dL (3.1-7.8)
== END | disposition home or self-care (01) ==
LOC: LAB 09:33
PROVIDERS: ATTEND Internal Medicine
DX: I10 Essential (primary) hypertension (principal)
CPT/HCPCS: 36415; 80053; 80061; 81001; 84439; 84443; 84550; 85025; 85652

== ENCOUNTER → 2024-08-11 | Outpatient (CLI) | payer BC ==
[2024-08-11 08:22] LABS: Basophils # (auto) 0.1 10 ^3/uL (0-0.2); Basophils % (auto) 1.2 % (0.0-2.0); Eosinophils # (auto) 0.1 10 ^3/uL (0-0.8); Eosinophils % (auto) 1.5 % (0.0-7.0); Hematocrit 37.7 % (36.0-46.0); Hemoglobin 13.2 g/dL (12.2-16.2); Lymphocytes # (auto) 2.6 10 ^3/uL (0.4-5.4); Lymphocytes % (auto) 38.8 % (10.0-50.0); Mean Corpuscular Hemoglobin 30.1 pg (28.0-32.0); Mean Corpuscular Volume 85.8 fL (80.0-100.0); Monocytes # (auto) 0.5 10 ^3/uL (0-1.3); Monocytes % (auto) 7.8 % (0.0-12.0); Neutrophils # (auto) 3.4 10 ^3/uL (1.6-8.6); Neutrophils % (auto) 50.7 % (37.0-80.0); Platelet Count (auto) 342 10^3/uL (140-450); Red Cell Distribution Width 13.5 % (11.8-14.3); White Blood Cell 6.6 10^3/uL (4.4-10.8)
[2024-08-11 08:46] LABS: Alanine Aminotransferase 19 U/L (7-40); Alkaline Phosphatase 67 U/L (46-116); Anion Gap 6 (5-15); Blood Urea Nitrogen 14 mg/dL (9-23); Carbon Dioxide 27 mmol/L (20-31); Chloride 106 mmol/L (98-107); Glucose 88 mg/dL (74-106); Potassium 4.5 mmol/L (3.5-5.1); Sodium 139 mmol/L (136-145)
[2024-08-11 08:47] LABS: Aspartate Aminotransferase 19 U/L (13-40); Total Protein 7.8 g/dL (5.7-8.2)
[2024-08-11 08:48] LABS: Bilirubin, Total 0.5 mg/dL (0.2-1.0); HDL Cholesterol 50 mg/dL (40-59)
[2024-08-11 08:55] LABS: Albumin 4.9 g/dL (3.2-4.8); Cholesterol 207 mg/dL (< 200); LDL Cholesterol 142 mg/dL (< 100); Triglycerides 163 mg/dL (< 150)
== END | disposition home or self-care (01) ==
LOC: LAB 07:30
PROVIDERS: ATTEND Nurse Practitioner Family
DX: I10 Essential (primary) hypertension (principal); R53.83 Other fatigue; Z00.01 Encounter for general adult medical examination with abnormal findings
CPT/HCPCS: 36415; 80053; 80061; 82670; 84403; 84443; 85025

== ENCOUNTER 2024-11-01 16:30 | Emergency (ER) | payer BC ==
[~2024-11-01] VITALS: Ht 160 cm; Wt 72.0 kg
[2024-11-01 17:21] LABS: Basophils # (auto) 0.1 10 ^3/uL (0-0.2); Basophils % (auto) 0.8 % (0.0-2.0); Eosinophils # (auto) 0.1 10 ^3/uL (0-0.8); Eosinophils % (auto) 0.9 % (0.0-7.0); Hematocrit 39.8 % (36.0-46.0); Hemoglobin 13.5 g/dL (12.2-16.2); Lymphocytes # (auto) 3.8 10 ^3/uL (0.4-5.4); Lymphocytes % (auto) 31.2 % (10.0-50.0); Mean Corpuscular Hemoglobin 29.1 pg (28.0-32.0); Mean Corpuscular Volume 85.6 fL (80.0-100.0); Monocytes # (auto) 0.8 10 ^3/uL (0-1.3); Monocytes % (auto) 6.9 % (0.0-12.0); Neutrophils # (auto) 7.3 10 ^3/uL (1.6-8.6); Neutrophils % (auto) 60.2 % (37.0-80.0); Nucleated Red Blood Cells % 0.1 %; Platelet Count (auto) 373 10^3/uL (140-450); Red Blood Cells 4.65 10^6/uL (4.0-5.20); Red Cell Distribution Width 13.3 % (11.8-14.3)
[2024-11-01 17:29] LABS: Anion Gap 11 (5-15); Carbon Dioxide 24 mmol/L (20-31); Chloride 101 mmol/L (98-107); Sodium 136 mmol/L (136-145)
--- NOTE | 2024-11-01 17:29 | DVH ---
EXAM: CT HEAD WITHOUT CONTRAST INDICATION: MORALES EXAM DATE: 11/01/2024 04:59 PM COMPARISON: HEAD WITHOUT CONTRAST on DOS: 07/29/19 TECHNIQUE: CT of the head without intravenous contrast. Radiation Dose Information: CTDI volume is 55.77 mGy. Dose-length product is 987.52 mGy*cm FINDINGS: There is no evidence of acute intracranial hemorrhage, extra-axial collection, mass effect, midline s hift, herniation or hydrocephalus. The ventricles, sulci and cisterns are age appropriate. The romo-w willie differentiation is intact. The visualized paranasal sinuses and mastoid air cells are clear. The surrounding soft tissues and osseous structures are unremarkable. IMPRESSION: 1. No evidence of acute intracranial hemorrhage, mass effect or hydrocephalus.
[2024-11-01 17:30] LABS: Calcium 9.1 mg/dL (8.7-10.4)
[2024-11-01 17:35] LABS: BUN/Creatinine Ratio 15.2 (10.0-20.0); Blood Urea Nitrogen 14 mg/dL (9-23); Glucose 96 mg/dL (74-106)
[2024-11-01] MEDS: ONDANSETRON HCL 4 MG/2 ML VIAL IV ONE (17:40)
[2024-11-01] MEDS: SODIUM CHLORIDE 0.9% 1,000 ML IV ONE (17:41)
[2024-11-01] MEDS: HYDROmorphone HCL 2 MG/ML VL/or syr IV ONE (17:41)
[2024-11-01 17:44] VITALS: PULSE 99; RESP 20; TEMP 98.2; O2SAT 97
--- NOTE | 2024-11-01 17:46 | ED.PDOC ---
History of Present Illness HPI Comments 44-year-old female who comes in with chief complaint of headache. The patient states that the headache started posteriorly and then went up to the top of the head. She states that she has had a history of migraine headaches in the past. She was here today at work and then at approximately 3:30 a.m. this afternoon at suddenly came on. She states that she is having some jaw pain as well as nausea. She did try some Excedrin without any significant relief. There has been no loss of taste or loss of smell. Chief Complaint: Headache Time Seen by MD: 16:51 Primary Care Provider: Juan David Reviewed Notes: Nurses Notes, Medications, Allergies (No allergies to medications) Allergies: Coded Allergies: NO KNOWN ALLERGIES (Unverified , 03/26/11) Home Meds Active Scripts Azithromycin (Zithromax) 1 Gm Pow, 1 PACK PO ONCE, #1 PACK Prov:HELLEN LAMBERT MD 08/24/22 Methylprednisolone (Medrol Dosepak) 4 Mg Chicho, 4 MG PO UD, #21 TAB UAD Prov:HELLEN LAMBERT MD 08/24/22 Information Source: Patient Mode of Arrival: Wheelchair Severity: Moderate Timing: Days Duration: Since onset Prehospital treatment: None Location: Posterior headache that goes anteriorly Past Medical History PAST MEDICAL HISTORY: DM, High Lipids, HTN, Thyroid Past Medical History (Other): Migraine headaches Surgical History: Denies all surgeries SALES CENTER MANAGER History: No Pertinent SALES CENTER MANAGER History Family History Family History: No family hx of Cancer, No family hx of DM Social History Smoker: Non-Smoker Alcohol: Occasionally Drugs: Denies Drug Use Lives In: Home Constitutional: denies: chills, diaphoresis, fatigue, fever, malaise, sweats, weakness, others EENTM: denies: blurred vision, double vision, ear bleeding, ear discharge, ear drainage, ear pain, ear ringing, eye pain, eye redness, hearing loss, mouth pain, mouth swelling, nasal discharge, nose bleeding, nose congestion, nose pain, photophobia, tearing, throat pain, throat swelling, voice changes, others Respiratory: denies: cough, hemoptysis, orthopnea, SOB at rest, shortness of breath, SOB with excertion, stridor, wheezing, others Cardiovascular: denies: chest pain, dizzy spells, diaphoresis, Dyspnea on exertion, edema, irregular heart beat, left arm pain, lightheadedness, palpitations, PND, syncope, others Gastrointestinal: reports: nausea; denies: abdomen distended, abdominal pain, blood streaked bowels, constipated, diarrhea, dysphagia, difficulty swallowing, hematemesis, melena, poor appetite, poor fluid intake, rectal bleeding, rectal pain, vomiting, others Genitourinary: denies: abnormal vagina bleeding, burning, dyspareunia, dysuria, flank pain, frequency, hematuria, incontinence, pain, , vagina discharge, urgency, others Neurological: reports: headache; denies: dizziness, fainting, left sided numbness, left sided weakness, numbness, paresthesia, pre-existing deficit, right sided numbness, right sided weakness, seizure, speech problems, tingling, tremors, weakness, others Musculoskeletal: denies: back pain, gout, joint pain, joint swelling, muscle pain, muscle stiffness, neck pain, others Integumetry: denies: bruises, change in color, change in hair/nails, dryness, laceration, lesions, lumps, rash, wounds, others Allergic/Immunocompromised: denies: Difficulty Healing, Frequent Infections, Hives, Itching, others Hematologic/Lymphatic: denies: anemia, blood clots, easy bleeding, easy bruising, swollen glands, others Endocrine: denies: excessive hunger, excessive sweating, excessive thirst, excessive urination, flushing, intolerance to cold, intolerance to heat, unexplained weight gain, unexplained weight loss, others Psychiatric: denies: anxiety, bipolar disorder, depression, hopeless, panic disorder, schizophrenia, sleepless, suicidal, others Physical Exam General Appearance: Moderate Distress HEENT: Normal ENT Inspection, Pharynx Normal, TMs Normal Neck: Full Range of Motion, Non-Tender, Normal, Normal Inspection Respiratory: Chest Non-Tender, Lungs Clear, No Accessory Muscle Use, No Respiratory Distress, Normal Breath Sounds Cardiovascular: No Edema, No JVD, No Murmur, No Gallop, Tachycardia Breast Exam: Deferred Gastrointestinal: No Organomegaly, Non Tender, No Pulsatile Mass, Normal Bowel Sounds, Soft Genitalia: Deferred Pelvic: Deferred Rectal: Deferred Extremities: No calf tenderness, Normal capillary refill, Normal inspection, Normal range of motion, Non-tender, No pedal edema Musculoskeletal : Apperance: Normal Neurologic: Alert, housing relocation II-XII nml as Tested, No Motor Deficits, Normal Affect, Normal Mood, No Sensory Deficits Cerebellar Function: Normal Reflexes: Normal Skin: Dry, Normal Color, Warm Lymphatic: No Adenopathy Was a procedure done? Was a procedure done?: No Differential Dx Considerations may include: Tension headache, generalized weakness, subarachnoid hemorrhage, migraine headache, hypertensive urgency X-Ray, Labs, Meds, VS Vital Signs Date Time Temp Pulse Resp B/P (MAP) Pulse Ox O2 Delivery O2 Flow Rate FiO2 11/01/24 18:19 95 20 146/71 11/01/24 17:44 98.2 99 18 161/84 (109) 97 98.2 11/01/24 17:44 99 20 97 Room Air* 0 21 11/01/24 17:41 84 18 161/87 11/01/24 16:46 98.4 101 18 151/78 (102) 98 98.4 Lab Test 11/01/24 19:22 11/01/24 16:59 Range/Units Urine Color Pending Urine Clarity Pending Urine pH Pending Urine Specific [place] Pending Urine Protein Pending Urine Ketones Pending Urine Blood Pending Urine Nitrite Pending Urine Bilirubin Pending Urine Urobilinogen Pending Urine Leukocyte Esterase Pending Urine RBC Pending Urine Microscopic WBC Pending Urine Squamous Epithelial Cells Pending Urine Bacteria Pending Urine Glucose Pending White Blood Count 12.0 H 4.4-10.8 10^3/uL Red Blood Count 4.65 4.0-5.20 10^6/uL Hemoglobin 13.5 12.2-16.2 g/dL Hematocrit 39.8 36.0-46.0 % Mean Corpuscular Volume 85.6 80.0-100.0 fL Mean Corpuscular Hemoglobin 29.1 28.0-32.0 pg Mean Corpuscular Hemoglobin Concent 34.0 32.0-36.0 g/dL Red Cell Distribution Width 13.3 11.8-14.3 % Platelet Count 373 140-450 10^3/uL Mean Platelet Volume 7.8 6.9-10.8 fL Neutrophils (%) (Auto) 60.2 37.0-80.0 % Lymphocytes (%) (Auto) 31.2 10.0-50.0 % Monocytes (%) (Auto) 6.9 0.0-12.0 % Eosinophils (%) (Auto) 0.9 0.0-7.0 % Basophils (%) (Auto) 0.8 0.0-2.0 % Neutrophils # (Auto) 7.3 1.6-8.6 10 ^3/uL Lymphocytes # (Auto) 3.8 0.4-5.4 10 ^3/uL Monocytes # (Auto) 0.8 0-1.3 10 ^3/uL Eosinophils # (Auto) 0.1 0-0.8 10 ^3/uL Basophils # (Auto) 0.1 0-0.2 10 ^3/uL Nucleated Red Blood Cells 0.1 % D-Dimer, Quantitative Pending Sodium Level 136 136-145 mmol/L Potassium Level 3.0 L 3.5-5.1 mmol/L Chloride Level 101 98-107 mmol/L Carbon Dioxide Level 24 20-31 mmol/L Anion Gap 11 5-15 Blood Urea Nitrogen 14 9-23 mg/dL Creatinine 0.92 0.550-1.02 mg/dL Glomerular Filtration Rate Calc 78 >90 mL/min BUN/Creatinine Ratio 15.2 10.0-20.0 Serum Glucose 96 74-106 mg/dL Calcium Level 9.1 8.7-10.4 mg/dL Current Medications Medications (Trade) Dose Ordered Sig/Janice Route Start Time Stop Time Status Last Admin Sodium Chloride 1,000 ml @ 1,000 mls/hr Q1H ONCE IV 11/01/24 17:00 11/01/24 17:59 DC 11/01/24 17:41 Ondansetron HCl (Zofran) 4 mg ONCE ONCE IV 11/01/24 17:00 11/01/24 17:01 DC 11/01/24 17:40 Hydromorphone HCl (Dilaudid Injection) 0.5 mg ONCE ONCE IV 11/01/24 17:00 11/01/24 17:01 DC 11/01/24 17:41 Potassium Chloride (Klor-Con Tablet) 40 meq ONCE ONCE PO 11/01/24 18:00 11/01/24 18:01 DC 11/01/24 18:03 CAT scan of the head is negative The patient's CBC shows a slightly elevated white blood cell count of 12 The rest of the CBC is within normal limits The chemistry panel shows hypokalemia at 3.0 The patient is being given potassium p.o. The patient was given Dilaudid 0.5 mg IV push The patient was also given Zofran 4 mg IV push The patient states that she is feeling somewhat better but she is still having some tachycardia At this time, the patient is being discharged after heart rate is now less than 100 Images Reviewed?: Images reviewed and evaluated by me Time of 1ST Reevaluation: 18:00 Reevaluation 1ST: Improved Time of 2ND Reevaluation: 19:29 Reevaluation 2ND: Improved Patient Education/Counseling: Diagnosis, Treatment, Prognosis, Need For Follow Up Family Education/Counseling: No Family Present Departure 1 Departure Time of Disposition: 19:28 Impression: Primary Impression: Migraine Qualified Codes: G43.901 - Migraine, unspecified, not intractable, with status migrainosus Additional Impression: Hypokalemia Disposition: 01 HOME / SELF CARE / HOMELESS Condition: Fair Discharged With: Self Critical Care Note Critical Care Time?: No Stability Stability form required: No Heart Score Heart Score: Heart Score Response (Comments) Value History N/A 0 EKG N/A 0 Age N/A 0 Risk Factors N/A 0 Troponin N/A 0 Total 0 HELLEN LAMBERT MD November 01, 2024 17:46
[2024-11-01] MEDS: POTASSIUM CHL 20 Meq TABLET PO ONE (18:03)
[2024-11-01 19:25] VITALS: BP 130/75; PULSE 82; RESP 18; O2SAT 96; O2SAT 98
[2024-11-01 19:39] LABS: Urine Bacteria FEW /hpf (None Seen); Urine Blood Negative /uL (Negative); Urine Clarity Clear (Clear); Urine Color Light-Yellow (Yellow); Urine Protein, UAD Negative (Negative); Urine Specific Gravity 1.005 (1.001-1.035); Urine Squamous Epithelial Cell FEW /hpf (<5); Urine Urobilinogen Normal (Negative); Urine WBC 1 /HPF (0-5); Urine pH 6.5 (5.0-9.0)
== END 2024-11-01 20:20 | disposition home or self-care (01) ==
LOC: ER 16:30 → EEVIPCON 16:30 → ER 20:20
DX: G43.909 Migraine, unspecified, not intractable, without status migrainosus (principal); E87.6 Hypokalemia; E11.9 Type 2 diabetes mellitus without complications; I10 Essential (primary) hypertension; E78.5 Hyperlipidemia, unspecified; Z79.899 Other long term (current) drug therapy
CPT/HCPCS: 36415; 70450; 80048; 81001; 85025; 85379; 96361; 96374; 96375; 99285; J1171; J2405; J7030

== ENCOUNTER 2025-02-09 07:18 | Outpatient (CLI) | payer BC ==
[2025-02-09 07:43] LABS: Triglycerides 144 mg/dL (< 150)
[2025-02-09 07:44] LABS: HDL Cholesterol 43 mg/dL (40-59)
[2025-02-09 07:45] LABS: Cholesterol 180 mg/dL (< 200)
== END 2025-02-09 17:00 | disposition home or self-care (01) ==
LOC: LAB 07:18
PROVIDERS: ATTEND Nurse Practitioner Family
DX: E78.5 Hyperlipidemia, unspecified (principal)
CPT/HCPCS: 36415; 80061

== ENCOUNTER 2025-03-20 17:50 | Emergency (ER) | payer BC ==
[~2025-03-20] VITALS: Ht 160 cm; Wt 70.6 kg
[2025-03-20 17:52] VITALS: BP 181/88; PULSE 85; RESP 16; TEMP 97; O2SAT 98
[2025-03-20 18:33] LABS: Hematocrit 38.8 % (36.0-46.0); Hemoglobin 13.0 g/dL (12.2-16.2); Mean Corpuscular Hemoglobin 28.8 pg (28.0-32.0); Mean Corpuscular Volume 86.0 fL (80.0-100.0); Nucleated Red Blood Cells % 0.1 %
[2025-03-20 18:39] LABS: Chloride 103 mmol/L (98-107); Potassium 3.6 mmol/L (3.5-5.1); Sodium 137 mmol/L (136-145)
[2025-03-20 18:40] LABS: Anion Gap 8 (5-15); Calcium 9.7 mg/dL (8.7-10.4); Carbon Dioxide 26 mmol/L (20-31)
[2025-03-20 18:41] LABS: Urine Protein, UAD Negative (Negative)
[2025-03-20 18:45] LABS: BUN/Creatinine Ratio 12.6 (10.0-20.0); Blood Urea Nitrogen 11 mg/dL (9-23); Glucose 98 mg/dL (74-106)
--- NOTE | 2025-03-20 18:45 | DVH ---
COMPUTERIZED TOMOGRAPHY ABDOMEN AND PELVIS WITHOUT CONTRAST REASON FOR EXAM: flank pain COMPARISON: None TECHNIQUE: Spiral scans were acquired from the diaphragm to the symphysis pubis without intravenous c ontrast administration. 2-D coronal and sagittal reformatted images were provided. Radiation optimiza tion: All CT scans at this facility use at least one of these dose optimization techniques: Automated exposure control mA and/or kV adjustment per patient size (includes targeted exams where dose is mat ched to clinical indication) or iterative reconstruction. RADIATION DOSE: CTDI: 11 mGy DLP: 645 mGy-cm FINDINGS: The visualized lung bases are clear. There is no pleural effusion. There is partial visualization of bilateral breast prostheses. There is no pericardial effusion. The spleen is not enlarged. The liver is normal in size and contour. No calcified gallstone is ident ified. There is no pericholecystic edema. Evaluation of the abdominal organs is suboptimal in the ab sence of intravenous contrast. Unenhanced appearance of the pancreas is grossly unremarkable. The adr enal glands are normal. The kidneys are similar in size. There is no hydronephrosis of either kidne y. No renal, ureteral, or bladder calculus is identified. The urinary bladder is decompressed and is suboptimally evaluated on the current study. There is no abdominal aortic aneurysm. The uterus and o varies are within normal limits on this noncontrast study. No free fluid is identified in the abdomen or pelvis. No pathologic lymphadenopathy is identified by size criteria. There is no pathologic dist ention of the small bowel. The colonic stool burden is small. The appendix is normal. No acute osseou s abnormality is identified. IMPRESSION: No renal, ureteral, or bladder calculus. No hydronephrosis of either kidney. Normal appendix. No acute finding in the abdomen or pelvis within the limitations of this noncontras t study to explain the patient's flank pain.
[2025-03-20 18:46] LABS: Alanine Aminotransferase 26 U/L (7-40); Albumin 4.7 g/dL (3.2-4.8); Alkaline Phosphatase 53 U/L (46-116); Anion Gap 10 (5-15); BUN/Creatinine Ratio 9.0 (10.0-20.0); Calcium 9.7 mg/dL (8.7-10.4); Carbon Dioxide 25 mmol/L (20-31); Chloride 103 mmol/L (98-107); Glucose 99 mg/dL (74-106); Lipase 39 U/L (12-53); Sodium 138 mmol/L (136-145); Total Protein 7.7 g/dL (5.7-8.2)
[2025-03-20 18:50] LABS: Bilirubin, Total 0.3 mg/dL (0.2-1.0); Blood Urea Nitrogen 8 mg/dL (9-23); Potassium 3.5 mmol/L (3.5-5.1)
[2025-03-20] MEDS ORDERED: GABA300T4 PO (19:04)
--- NOTE | 2025-03-20 19:35 | ED.PDOC ---
History of Present Illness HPI Comments 44 y/o F presents with c/c of right lower back pain. Pain has been ongoing for 1x week and radiates to her abdomen. Significant history of DM, HLD, HTN, and thyroid disease. No reported history of kidney stones or UTI's. Denies any fever, pain with urination, or further associated symptoms. Chief Complaint: Flank Pain Time Seen by MD: 18:20 Primary Care Provider: Juan David Breen Notes: Nurses Notes, Medications, Allergies Allergies: Coded Allergies: NO KNOWN ALLERGIES (Unverified , 03/26/11) Home Meds Active Scripts Gabapentin (Once-Daily) (Gabapentin) 300 Mg Tab, 300 MG PO Q6HP PRN, #30 TAB Prov:TAMIA SEGURA MD 03/20/25 Azithromycin (Zithromax) 1 Gm Pow, 1 PACK PO ONCE, #1 PACK Prov:HELLEN LAMBERT MD 08/24/22 Methylprednisolone (Medrol Dosepak) 4 Mg [place]o, 4 MG PO UD, #21 TAB UAD Prov:HELLEN LAMBERT MD 08/24/22 Information Source: Patient Mode of Arrival: Ambulatory Severity: Moderate Timing: Weeks Duration: Since onset Prehospital treatment: None Past Medical History PAST MEDICAL HISTORY: DM, High Lipids, HTN, Thyroid Surgical History: Denies all surgeries 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 History Family History Family History: No family hx of Cancer, No family hx of DM Social History Smoker: Non-Smoker Alcohol: Occasionally Drugs: Denies Drug Use Lives In: Home All Other Systems: Reviewed and Negative (Comprehensive review of systems are negative unless stated in HPI) Physical Exam General Appearance: No Apparent Distress, Normal HEENT: Normal ENT Inspection, Pharynx Normal, TMs Normal Neck: Full Range of Motion, Non-Tender, Normal, Normal Inspection Respiratory: Chest Non-Tender, Lungs Clear, No Accessory Muscle Use, No Respiratory Distress, Normal Breath Sounds Cardiovascular: No Edema, No JVD, No Murmur, No Gallop, Normal Peripheral Pulses, Regular Rate/Rhythm Breast Exam: Deferred Gastrointestinal: No Organomegaly, Non Tender, No Pulsatile Mass, Normal Bowel Sounds, Soft Genitalia: Deferred Pelvic: Deferred Rectal: Deferred Extremities: No calf tenderness, Normal capillary refill, Normal inspection, Normal range of motion, Non-tender, No pedal edema Musculoskeletal : Location: Right Extremity Location: Back (lumbar region) Apperance: Normal, Tenderness: Mild Neurologic: Alert, gate operator II-XII nml as Tested, No Motor Deficits, Normal Affect, Normal Mood, No Sensory Deficits Cerebellar Function: Normal Reflexes: Normal Skin: Dry, Normal Color, Warm Lymphatic: No Adenopathy Was a procedure done? Was a procedure done?: No Differential Dx Considerations may include: musculoskeletal pain, nephrolithiasis, pyelonephritis, cystitis, ovarian cysts/torsion, PID, diverticulitis, appendicitis, among others X-Ray, Labs, Meds, VS Vital Signs Date Time Temp Pulse Resp B/P (MAP) Pulse Ox O2 Delivery O2 Flow Rate FiO2 03/20/25 17:52 97.0 85 16 181/88 98 97.0 Lab Test 03/20/25 18:18 03/20/25 18:15 Range/Units White Blood Count 9.9 4.4-10.8 10^3/uL Red Blood Count 4.51 4.0-5.20 10^6/uL Hemoglobin 13.0 12.2-16.2 g/dL Hematocrit 38.8 36.0-46.0 % Mean Corpuscular Volume 86.0 80.0-100.0 fL Mean Corpuscular Hemoglobin 28.8 28.0-32.0 pg Mean Corpuscular Hemoglobin Concent 33.5 32.0-36.0 g/dL Red Cell Distribution Width 13.3 11.8-14.3 % Platelet Count 327 140-450 10^3/uL Mean Platelet Volume 8.3 6.9-10.8 fL Neutrophils (%) (Auto) 59.1 37.0-80.0 % Lymphocytes (%) (Auto) 32.5 10.0-50.0 % Monocytes (%) (Auto) 6.6 0.0-12.0 % Eosinophils (%) (Auto) 1.3 0.0-7.0 % Basophils (%) (Auto) 0.5 0.0-2.0 % Neutrophils # (Auto) 5.9 1.6-8.6 10 ^3/uL Lymphocytes # (Auto) 3.2 0.4-5.4 10 ^3/uL Monocytes # (Auto) 0.7 0-1.3 10 ^3/uL Eosinophils # (Auto) 0.1 0-0.8 10 ^3/uL Basophils # (Auto) 0 0-0.2 10 ^3/uL Nucleated Red Blood Cells 0.1 % Sodium Level 138 136-145 mmol/L Potassium Level 3.5 3.5-5.1 mmol/L Chloride Level 103 98-107 mmol/L Carbon Dioxide Level 25 20-31 mmol/L Anion Gap 10 5-15 Blood Urea Nitrogen 8 L 9-23 mg/dL Creatinine 0.89 0.550-1.02 mg/dL Glomerular Filtration Rate Calc 81 >90 mL/min BUN/Creatinine Ratio 9.0 L 10.0-20.0 Serum Glucose 99 74-106 mg/dL Calcium Level 9.7 8.7-10.4 mg/dL Total Bilirubin 0.3 0.2-1.0 mg/dL Aspartate Amino Transferase (AST) 23 13-40 U/L Alanine Aminotransferase (ALT) 26 7-40 U/L Alkaline Phosphatase 53 46-116 U/L Total Protein 7.7 5.7-8.2 g/dL Albumin 4.7 3.2-4.8 g/dL Lipase 39 12-53 U/L Urine Color Light-yellow Yellow Urine Clarity Clear Clear Urine pH 5.5 5.0-9.0 Urine Specific [place] 1.011 1.001-1.035 Urine Protein Negative Negative Urine Ketones Negative Negative Urine Blood Negative Negative /uL Urine Nitrite Negative Negative Urine Bilirubin Negative Negative Urine Urobilinogen Normal Negative mg/dL Urine Leukocyte Esterase Negative Negative /uL Urine RBC 1 0 - 4 /hpf Urine Microscopic WBC 1 0-5 /HPF Urine Squamous Epithelial Cells Few <5 /hpf Urine Bacteria None seen None Seen /hpf Urine Glucose Normal Normal mg/dL [place] [id number] Ph: [phone] DIAGNOSTIC IMAGING Diagnostic Imaging Report : [id number] Signed PATIENT: DANIELLE PARMAR ACCT: [id number] UNIT: [id number] : 1980 LOC: ER ROOM / BED: / AGE / SEX: 44 / F ADM STATUS: REG ER SERVICE [id number] ORDERING PHYSICIAN: HELLEN LAMBERT MD PROCEDURE(s): ABPL - CT AB PEL WO CON-NO ORAL OR IV REASON: flank pain ORDER NUMBER(s): [id number], ACCESSION NUMBER(s): [id number] COMPUTERIZED TOMOGRAPHY ABDOMEN AND PELVIS WITHOUT CONTRAST REASON FOR EXAM: flank pain COMPARISON: None TECHNIQUE: Spiral scans were acquired from the diaphragm to the symphysis pubis without intravenous contrast administration. 2-D coronal and sagittal reformatted images were provided. Radiation optimization: All CT scans at this facility use at least one of these dose optimization techniques: Automated exposure control mA and/or kV adjustment per patient size (includes targeted exams where dose is matched to clinical indication) or iterative reconstruction. RADIATION DOSE: CTDI: 11 mGy DLP: 645 mGy-cm FINDINGS: The visualized lung bases are clear. There is no pleural effusion. There is partial visualization of bilateral breast prostheses. There is no pericardial effusion. The spleen is not enlarged. The liver is normal in size and contour. No calcified gallstone is identified. There is no pericholecystic edema. Evaluation of the abdominal organs is suboptimal in the absence of intravenous contrast. Unenhanced appearance of the pancreas is grossly unremarkable. The adrenal glands are normal. The kidneys are similar in size. There is no hydronephrosis of either kidney. No renal, ureteral, or bladder calculus is identified. The urinary bladder is decompressed and is suboptimally evaluated on the current study. There is no abdominal aortic aneurysm. The uterus and ovaries are within normal limits on this noncontrast study. No free fluid is identified in the abdomen or pelvis. No pathologic lymphadenopathy is identified by size criteria. There is no pathologic distention of the small bowel. The colonic stool burden is small. The appendix is normal. No acute osseous abnormality is identified. IMPRESSION: No renal, ureteral, or bladder calculus. No hydronephrosis of either kidney. Normal appendix. No acute finding in the abdomen or pelvis within the limitations of this noncontrast study to explain the patient's flank pain. ATED BY: DRAKE GREENFIELD MD DICTATED DATE/TIME: 03/20/251841 SIGNED BY: DRAKE GREENFIELD MD SIGNED DATE/TIME: 03/20/251841 CC: Time of 1ST Reevaluation: 18:50 Reevaluation 1ST: Unchanged Patient Education/Counseling: Diagnosis, Treatment, Need For Follow Up Family Education/Counseling: No Family Present SEPSIS Sepsis Screen Date sepsis recognized/suspect: Mar 20, 2025 Time Sepsis recognized/suspect: 175 Recent Procedure: No On Antibiotic Therapy: No Respiratory Rate >20: No Heart Rate >90: No Temp<36 C (96.8 F) or >38.3 C: No SBP <90 or MAP <65 mmHG: No New Acute Mental Status Change: No Is the patient on CPAP, BIPAP,: No Physician Orders Ct Ab Pel Wo Con-No Oral Or Iv (03/20/25 17:58) Vital Signs Date Time Temp Pulse Resp B/P (MAP) Pulse Ox O2 Delivery O2 Flow Rate FiO2 03/20/25 17:52 97.0 85 16 181/88 98 97.0 Laboratory Tests Test 03/20/25 18:18 White Blood Count 9.9 10^3/uL (4.4-10.8) Departure 1 Departure Time of Disposition: 20:50 Impression: Primary Impression: Right flank pain Disposition: HOME / SELF CARE / HOMELESS Condition: Stable Additional Instructions: Your lab and urinalysis results were reassuring. Your CT today showed: IMPRESSION: No renal, ureteral, or bladder calculus. No hydronephrosis of either kidney. Normal appendix. No acute finding in the abdomen or pelvis within the limitations of this noncontrast study to explain the patient's flank pain. Follow up with your primary physician Return to the Emergency Department for any worsening symptoms or concerns e-Prescriptions Gabapentin (Once-Daily) (Gabapentin) 300 Mg Tab 300 MG PO Q6HP PRN, #30 TAB Prov: TAMIA SEGURA MD 03/20/25 Discharged With: Self Critical Care Note Critical Care Time?: No Stability Stability form required: No Heart Score Heart Score: Heart Score Response (Comments) Value History N/A 0 EKG N/A 0 Age N/A 0 Risk Factors N/A 0 Troponin N/A 0 Total 0 I personally scribed for TAMIA SEGURA MD ([email or web address]) on 03/20/25 at 19:35. Electronically submitted by Balbir Man ([email or web address]). TAMIA SEGURA MD Mar 20, 2025 19:35
== END 2025-03-20 22:33 | disposition home or self-care (01) ==
LOC: ER 17:50 → EEVIPCON 17:50 → ER 22:33
DX: R10.A1 Flank pain, right side (principal); F10.90 Alcohol use, unspecified, uncomplicated; E78.5 Hyperlipidemia, unspecified; E11.9 Type 2 diabetes mellitus without complications; I10 Essential (primary) hypertension; Z79.899 Other long term (current) drug therapy; Y90.9 Presence of alcohol in blood, level not specified
CPT/HCPCS: 36415; 74176; 80048; 80053; 81001; 83690; 85025